=== PATIENT | male | born 2000 | race Native Hawaiian/Other Pacific Islander ===

== ENCOUNTER 2018-02-08 11:55 | Emergency (ER) | payer OTHER ==
--- NOTE | 2018-02-08 12:58 | ED Physician Documentation ---
PD HPI LOWER EXT INJURY - Stated complaint Stated Complaint: R FOOT INJ - Chief complaint Chief Complaint: Ext Problem - History obtained from History obtained from: Patient PD PAST MEDICAL HISTORY - Present Medications Home Medications: Ambulatory Orders Medication Instructions Recorded Confirmed Ibuprofen [Motrin] 600 mg PO TID #30 tab 02/08/18 - Allergies Allergies/Adverse Reactions: Allergies Allergy/AdvReac Type Severity Reaction Status Date / Time No Known Drug Allergies Allergy Verified 02/08/18 12:02 PD ED PE NORMAL - Vitals Vital signs reviewed: Yes - General General: Alert and oriented X 3, No acute distress, Well developed/nourished - Derm Derm: Normal color, Warm and dry - Extremities Extremities: Other (not tender at proximal tib/fib. the ankle is tender medial and lateral at ligaments, with moderate effusion both sides c/w likely torn ligaments. Pain with stress testing, so limited, but no gross laxity of the ankle. ) - Neuro Neuro: Alert and oriented X 3, No motor deficit, No sensory deficit Results - Vitals Vitals: Oxygen O2 Source Room air - Rads (name of study) ankle Radiology: Prelim report reviewed (small avulsion off medial talus. Soft tissue swelling. ), EMP read contemporaneously PD MEDICAL DECISION MAKING - ED course Complexity details: reviewed results, considered differential (I think he has some ligament injuries with partial tears. No gross laxity of ankle joint. Will likely be several weeks/month for healing. ), d/w patient - Sepsis Event Vital Signs: Oxygen O2 Source Room air Departure - Departure Disposition: 01 Home, Self Care Clinical Impression: Moderate right ankle sprain Qualifiers: Encounter type: initial encounter Qualified Code(s): S93.401A - Sprain of unspecified ligament of right ankle, initial encounter Avulsion fracture of ankle Qualifiers: Encounter type: initial encounter Fracture type: closed Laterality: right Qualified Code(s): S82.891A - Other fracture of right lower leg, initial encounter for closed fracture Condition: Stable Record reviewed to determine appropriate education?: Yes Instructions: ED Sprain Foot Follow-Up: MEGGAN Baugh [Provider Group] Prescriptions: Ibuprofen [Motrin] 600 mg PO TID #30 tab Comments: You have a lot of swelling in the ankle and on x-ray there is a small avulsion (pulled off)'s positive bone which represents some partial tearing of the ligaments. These can take 2-4 weeks to heal up. Use the walking boot when up and around for the next couple of weeks and follow-up with your primary this coming week to see on job restrictions and modifications or alternatives to the boot orthosis. Off work initially for the next 3 days anyway to allow swelling and inflammation to go down. Ibuprofen 3 times a day. Ice and elevate the ankle often the next few days. Forms: Activity restrictions Discharge Date/Time: 02/08/18 14:03
--- NOTE | 2018-02-08 13:05 | XRAY Report ---
Reason: injury/pain Procedure Date: 02/08/2018 Accession Number: [id number] / [id number] Procedure: XR - Ankle 3 View RT CPT Code: FULL RESULT: EXAM: RIGHT ANKLE RADIOGRAPHY EXAM DATE: 02/08/2018 12:48 PM. CLINICAL HISTORY: Injury/pain. COMPARISON: None. TECHNIQUE: 3 views. FINDINGS: Bones: No fibula fracture or calcaneus fracture. There is a small triangular calcification located medial to the talus and inferior to the medial malleolus. Joints: Joint space and alignment appear satisfactory. Soft Tissues: There is lateral ankle soft tissue swelling. IMPRESSION: 1. Lateral ankle soft tissue swelling without a lateral ankle fracture. 2. Small triangular calcification of the medial ankle could represent a degenerative calcification, sequela of old injury, or a small fracture avulsion fragment. Correlate with location of pain. [facility]
[2018-02-08] MEDS ORDERED: IBUPROFEN 600 MG TABLET PO STA (13:21)
[2018-02-08 14:01] VITALS: BP 141/89
== END 2018-02-08 14:03 | disposition home or self-care (01) ==
LOC: ED 11:55
DX: S93.401A Sprain of unspecified ligament of right ankle, initial encounter (principal); S82.891A Other fracture of right lower leg, initial encounter for closed fracture; Y93.67 Activity, basketball
CPT/HCPCS: 73610; 99283; A9270